=== PATIENT | male | born 1935 | race Caucasian/White ===

== ENCOUNTER 2018-12-01 13:37 | Outpatient (CLI) | payer MEDICARE, BC ==
[~2018-12-01 13:37] MED LIST: ASPI-496 PO; ATEN50TA41 PO; FINA5TAB4 PO; LEVO125T PO; NIFE90TA9 PO; OXAZ10CA26 PO; POTA20PI5 PO; TERA5CAP3 PO
== END 2018-12-01 23:59 | disposition home or self-care (01) ==
LOC: WOUND 13:37
PROVIDERS: ATTEND Nurse Practitioner Family
DX: S91.302A Unspecified open wound, left foot, initial encounter (principal); L02.611 Cutaneous abscess of right foot; B95.61 Methicillin susceptible Staphylococcus aureus infection as the cause of diseases classified elsewhere; E03.9 Hypothyroidism, unspecified; I10 Essential (primary) hypertension; E78.5 Hyperlipidemia, unspecified; N40.1 Benign prostatic hyperplasia with lower urinary tract symptoms; F41.9 Anxiety disorder, unspecified; Z98.49 Cataract extraction status, unspecified eye; Z85.820 Personal history of malignant melanoma of skin; Z87.891 Personal history of nicotine dependence; X58.XXXA Exposure to other specified factors, initial encounter; Y93.89 Activity, other specified; Y92.89 Other specified places as the place of occurrence of the external cause; Y99.8 Other external cause status
CPT/HCPCS: 11042; G0463

== ENCOUNTER 2018-12-08 13:06 | Outpatient (CLI) | payer MEDICARE, BC | END 2018-12-08 23:59 | disposition home or self-care (01) | LOC: WOUND 13:06 | PROVIDERS: ATTEND Nurse Practitioner Family | DX: L02.611 Cutaneous abscess of right foot (principal); S91.301D Unspecified open wound, right foot, subsequent encounter; B95.61 Methicillin susceptible Staphylococcus aureus infection as the cause of diseases classified elsewhere; B37.2 Candidiasis of skin and nail; E03.9 Hypothyroidism, unspecified; I10 Essential (primary) hypertension; E78.5 Hyperlipidemia, unspecified; N40.1 Benign prostatic hyperplasia with lower urinary tract symptoms; F41.9 Anxiety disorder, unspecified; Z87.891 Personal history of nicotine dependence; X58.XXXD Exposure to other specified factors, subsequent encounter | CPT/HCPCS: 11042 ==

== ENCOUNTER 2018-12-15 09:00 | Outpatient (CLI) | payer MEDICARE, BC | END 2018-12-15 23:59 | disposition home or self-care (01) | LOC: WOUND 09:00 | PROVIDERS: ATTEND Nurse Practitioner Family | DX: S91.301D Unspecified open wound, right foot, subsequent encounter (principal); L02.611 Cutaneous abscess of right foot; L98.0 Pyogenic granuloma; B37.2 Candidiasis of skin and nail; B95.61 Methicillin susceptible Staphylococcus aureus infection as the cause of diseases classified elsewhere; E03.9 Hypothyroidism, unspecified; I10 Essential (primary) hypertension; E78.5 Hyperlipidemia, unspecified; N40.1 Benign prostatic hyperplasia with lower urinary tract symptoms; F41.9 Anxiety disorder, unspecified; Z87.891 Personal history of nicotine dependence; X58.XXXD Exposure to other specified factors, subsequent encounter | CPT/HCPCS: G0463 ==

== ENCOUNTER 2019-10-12 12:15 | Outpatient (CLI) | payer MEDICARE, BC ==
[~2019-10-12 12:15] MED LIST changes: +NIFE90TA53 PO; -NIFE90TA9 PO
[2019-10-12] MEDS ORDERED: OMNIPAQUE 350 MG/ML, 100ML BOTTLE ONE (14:55)
== END 2019-10-12 23:59 | disposition home or self-care (01) ==
LOC: CFH 12:15
PROVIDERS: ATTEND Nurse Practitioner Primary Care
DX: K76.89 Other specified diseases of liver (principal); Z79.899 Other long term (current) drug therapy; E03.9 Hypothyroidism, unspecified; R79.9 Abnormal finding of blood chemistry, unspecified; D64.9 Anemia, unspecified; F06.31 Mood disorder due to known physiological condition with depressive features; F51.01 Primary insomnia
CPT/HCPCS: 71275; 82565; Q9967

== ENCOUNTER → 2020-10-25 | Outpatient (CLI) | payer MEDICARE, BC | END | disposition home or self-care (01) | LOC: RAD 11:11 | PROVIDERS: ATTEND Internal Medicine Hematology & Oncology | DX: M41.85 Other forms of scoliosis, thoracolumbar region (principal); D47.2 Monoclonal gammopathy; M50.33 Other cervical disc degeneration, cervicothoracic region; M51.36 Other intervertebral disc degeneration, lumbar region | CPT/HCPCS: 72082 ==